=== PATIENT | female | born 1990 | race Caucasian/White ===

== ENCOUNTER → 2016-09-16 | Outpatient (CLI) | payer OTHER ==
--- NOTE | 2016-09-16 14:24 | CR ---
EXAMINATION: Left wrist HISTORY: Pain COMPARISON: None TECHNIQUE: 3 views FINDINGS/IMPRESSION: There is no acute osseous abnormality, dislocation, or fracture. Bone mineraliz ation and joint spaces appear normal.
== END ==
LOC: MW.CHOBGYN 09:08
PROVIDERS: ATTEND Advanced Practice Midwife
DX: M25.532 Pain in left wrist (principal); E07.9 Disorder of thyroid, unspecified
CPT/HCPCS: 36415; 73110-26-LT; 73110-LT; 84439; 84443

== ENCOUNTER 2018-07-24 17:55 | Emergency (ER) | payer SELFPAY ==
--- NOTE | 2018-07-24 18:21 | EDM.PDOC ---
ED HPI GENERAL MEDICAL PROBLEM - General Chief Complaint: ENT Problem Stated Complaint: HURTING EAR Time Seen by Provider: 07/24/18 17:56 Source of Information: Reports: Patient History Limitations: Reports: No Limitations - History of Present Illness INITIAL COMMENTS - FREE TEXT/NARRATIVE: HISTORY AND PHYSICAL: History of present illness: Patient is a 27 she'll female who presents to the emergency room with concerns of left ear pain, sore throat and subjective fevers. She states she has been using Tylenol over the counter without any relief. She denies any chest pain, shortness of breath or cough. Denies any abdominal pain, nausea, vomiting, diarrhea or constipation. States she has been able to eat and drink appropriately although it does cause some pain with swallowing. Review of systems: As per history of present illness and below otherwise all systems reviewed and negative. Past medical history: As per history of present illness and as reviewed below otherwise noncontributory. Surgical history: As per history of present illness and as reviewed below otherwise noncontributory. Social history: See social history for further information Family history: As per history of present illness and as reviewed below otherwise noncontributory. Physical exam: General: HEENT: Atraumatic, normocephalic, pupils equal and reactive bilaterally, negative for conjunctival pallor or scleral icterus, mucous membranes moist, left tympanic membrane is erythematous, absent light reflex and no bulging. Right TM normal. Posterior oropharynx is erythematous with out exudate, neck supple, nontender, trachea midline. No drooling or trismus noted. No meningeal signs. No hot potato voice noted. Lungs: Clear to auscultation, breath sounds equal bilaterally, chest nontender. Heart: S1S2, regular rate and rhythm without overt murmur Abdomen: Soft, nondistended, nontender. Negative for masses. Pelvis: Stable nontender. Genitourinary: Deferred. Rectal: Deferred. Skin: Intact, warm, dry. No lesions or rashes noted. Extremities: Atraumatic, negative for cords or calf pain. Neurovascular unremarkable. Neuro: Awake, alert, oriented. Cranial nerves II through XII unremarkable. Cerebellum unremarkable. Motor and sensory unremarkable throughout. Exam nonfocal. Notes: We'll treat with Augmentin. She states that Tylenol and ibuprofen are fine for pain management. Supportive care measures were reviewed and discussed. Voices understanding and is agreeable to plan of care. Denies any further questions or concerns at this time. Diagnostics: None Therapeutics: None Prescription: Augmentin Impression: Otitis media, left Pharyngitis Plan: 1. Take the antibiotic as directed. 2. Warm salt water gargle rinse and spit. Tylenol and/or ibuprofen as needed for pain and fever management. 3. Please follow-up with your primary care provider as a discussed. Return to the ED as needed and as discussed. Definitive disposition and diagnosis as appropriate pending reevaluation and review of above. Left Ear Pain Score (Numeric/FACES): 10 - Related Data Allergies Allergy/AdvReac Type Severity Reaction Status Date / Time No Known Allergies Allergy Verified 07/24/18 18:20 Home Meds: Home Meds Amoxicillin/Potassium Clav [Augmentin 875-125 Tablet] 1 each PO BID 10 Days #20 tablet 07/24/18 [Rx] ED ROS ENT - Review of Systems Review Of Systems: ROS reveals no pertinent complaints other than HPI. ED EXAM, ENT - Physical Exam Exam: See Below (See dictation) Course - Vital Signs Last Recorded V/S: Last Vital Signs Temp 98.6 F 07/24/18 18:17 Pulse 112 H 07/24/18 18:17 Resp BP 142/80 H 07/24/18 18:17 Pulse Ox 99 07/24/18 18:17 Departure - Departure Time of Disposition: 18:27 Disposition: Home, Self-Care 01 Clinical Impression: Otitis media Qualifiers: Otitis media type: unspecified Laterality: left Qualified Code(s): H66.92 - Otitis media, unspecified, left ear - Discharge Information Prescriptions: Amoxicillin/Potassium Clav [Augmentin 875-125 Tablet] 1 each PO BID 10 Days #20 tablet Instructions: Otitis Media, Adult, [id number] Referrals: PCP,Unknown [Primary Care Provider] - Forms: ED Department Discharge Additional Instructions: The following information is given to patients seen in the emergency department who are being discharged to home. This information is to outline your options for follow-up care. We provide all patients seen in our emergency department with a follow-up referral. The need for follow-up, as well as the timing and circumstances, are variable depending upon the specifics of your emergency department visit. If you don't have a primary care physician on staff, we will provide you with a referral. We always advise you to contact your personal physician following an emergency department visit to inform them of the circumstance of the visit and for follow-up with them and/or the need for any referrals to a consulting specialist. The emergency department will also refer you to a specialist when appropriate. This referral assures that you have the opportunity for follow-up care with a specialist. All of these measure are taken in an effort to provide you with optimal care, which includes your follow-up. Under all circumstances we always encourage you to contact your private physician who remains a resource for coordinating your care. When calling for follow-up care, please make the office aware that this follow-up is from your recent emergency room visit. If for any reason you are refused follow-up, please contact the [facility] Emergency Department at and asked to speak to the emergency department charge nurse. [facility] [address] [place] [id number] [facility] [address] [place] [address] 1. Take the antibiotic as directed. 2. Warm salt water gargle rinse and spit. Tylenol and/or ibuprofen as needed for pain and fever management. 3. Please follow-up with your primary care provider as a discussed. Return to the ED as needed and as discussed.
[2018-07-24 18:47] VITALS: BP 126/73
== END 2018-07-24 18:48 | disposition home or self-care (01) ==
LOC: MW.ED 17:55
DX: H66.92 Otitis media, unspecified, left ear (principal); J02.9 Acute pharyngitis, unspecified
CPT/HCPCS: 99282; 99283

== ENCOUNTER 2023-11-18 19:14 | Emergency (ER) | payer OTHER ==
[2023-11-18 20:27] VITALS: BP 130/66; PULSE 76
== END 2023-11-18 23:55 | disposition left against medical advice (07) ==
LOC: MW.ED 19:14
DX: Z53.21 Procedure and treatment not carried out due to patient leaving prior to being seen by health care provider (principal)

== ENCOUNTER 2023-11-19 17:02 | Emergency (ER) | payer OTHER ==
[2023-11-19] MEDS: Ibuprofen 400 MG Tab PO ONE (18:05)
[2023-11-19] MEDS: Lidocaine 1% 5 ML VIAL INJECT ONE (19:00)
[2023-11-19] MEDS: Diphtheria,Pertussis(Acell),Tetanus Vaccine 0.5 ML Syringe IM ONE (21:21)
[2023-11-19] MEDS: ceFAZolin 2 GM in Sodium Chloride 0.9% 50 ML IV ONE (21:21)
[2023-11-19 22:00] VITALS: BP 117/76; PULSE 84
== END 2023-11-19 22:00 | disposition home or self-care (01) ==
LOC: MW.ED 17:02
DX: S62.613B Displaced fracture of proximal phalanx of left middle finger, initial encounter for open fracture (principal); S61.011A Laceration without foreign body of right thumb without damage to nail, initial encounter; W26.8XXA Contact with other sharp object(s), not elsewhere classified, initial encounter
CPT/HCPCS: 64450; 73130; 73140; 90471; 90715; 96365; 99283; A9270; J0690; J3490

== ENCOUNTER 2024-12-02 11:15 | Emergency (ER) | payer OTHER ==
[2024-12-02] MEDS: Albuterol 0.083% 2.5 MG/3 ML Neb Soln NEB ONE (12:04)
[2024-12-02 13:38] VITALS: BP 127/54; PULSE 115
== END 2024-12-02 13:39 | disposition home or self-care (01) ==
LOC: MW.ED 11:15
DX: J18.9 Pneumonia, unspecified organism (principal); J10.1 Influenza due to other identified influenza virus with other respiratory manifestations; Z79.899 Other long term (current) drug therapy
CPT/HCPCS: 71045; 87428; 99285; J7613; 99283; A9270-GY

== ENCOUNTER 2025-04-19 13:53 | Emergency (ER) | payer OTHER ==
[2025-04-19 15:57] LABS: BASOPHILS ABSOLUTE AUTO 0.02 K/uL (0.00-0.20); BASOPHILS PERCENT AUTO 0.3 % (0.0-1.0); EOSINOPHILS ABSOLUTE AUTO 0.03 K/uL (0.00-0.45); EOSINOPHILS PERCENT AUTO 0.4 % (0.0-6.0); IMMATURE GRAN ABSOLUTE AUTO 0.01 K/uL (0.00-0.05); IMMATURE GRAN PERCENT AUTO 0.1 % (0.0-0.4); LYMPHOCYTES ABSOLUTE AUTO 2.97 K/uL (1.00-4.80); LYMPHOCYTES PERCENT AUTO 39.6 % (24.0-44.0); MEAN PLATELET VOLUME 10.3 fL (9.4-12.3); MONOCYTES ABSOLUTE AUTO 0.38 K/uL (0.00-0.80); MONOCYTES PERCENT AUTO 5.1 % (0.0-8.0); NEUTROPHILS ABSOLUTE AUTO 4.09 K/uL (1.80-7.70); NEUTROPHILS PERCENT AUTO 54.5 % (41.0-71.0); NRBC ABSOLUTE 0.00 K/uL (0.00-0.02); NRBC PERCENT 0.0 /100WBC (0.0-0.2); PLATELET COUNT,PLT 281 K/uL (150-400); RED BLOOD CELL COUNT 4.46 M/uL (4.10-5.30); WHITE BLOOD CELL COUNT,WBC 7.50 K/uL (3.9-11.3)
[2025-04-19 16:26] LABS: A/G RATIO 0.9 (0.9-1.6); ALANINE AMINOTRANSFERASE,ALT 27.0 IU/L (14-63); ASPARTATE AMNIOTRANSFERASE,AST 18.0 IU/L (15-37); BILIRUBIN TOTAL 0.3 mg/dL (0.2-1.0); BLOOD UREA NITROGEN,BUN 15.0 mg/dL (7.0-18.0); CARBON DIOXIDE,CO2 26.5 mmol/L (21.0-32.0); CHLORIDE,CL 107.0 mmol/L (98-107); CREATININE 0.8 mg/dL (0.6-1.0); EST CRCL DRUG DOSING (CG) 90.0 mL/min; GLUCOSE RANDOM 88.0 mg/dL (74-106); POTASSIUM,K 4.0 mmol/L (3.5-5.1); PROTEIN TOTAL,TP 7.5 g/dL (6.4-8.2); SODIUM,NA 140.0 mmol/L (136-145)
[2025-04-19 16:36] LABS: ESTIMATED GFR 100.0 mL/min (>60)
[2025-04-19 16:48] VITALS: BP 120/65; PULSE 75
== END 2025-04-19 16:58 | disposition home or self-care (01) ==
LOC: MW.ED 13:53
DX: G64 Other disorders of peripheral nervous system (principal); R44.8 Other symptoms and signs involving general sensations and perceptions; Z79.899 Other long term (current) drug therapy; Z72.0 Tobacco use
CPT/HCPCS: 36415; 70450; 70450-26; 80053; 81025; 85025; 99283; 99284